=== PATIENT | female | born 1965 | race Two or more races ===

== ENCOUNTER 2020-05-30 16:58 | Inpatient (IN) | payer BC, OTHER ==
[~2020-05-30] VITALS: Ht 160 cm; Wt 156.8 kg
[2020-05-30] MEDS ORDERED: morphine 4 MG/ML inj SYRINge IV ONE (18:05)
[2020-05-30] MEDS ORDERED: ondansetron/PF 4mg/2ml inj IV ONE (18:05)
[2020-05-30 18:10] LABS: BASOPHILS % (AUTO) 0.3 % (0-1); EOSINOPHILS # (AUTO) 0.1 X10'3 (0-0.9); EOSINOPHILS % (AUTO) 1.3 % (0-6); HEMATOCRIT 39.2 % (35.0-45.0); LYMPHOCYTES # (AUTO) 1.7 X10'3 (1.1-4.8); LYMPHOCYTES % (AUTO) 26.4 % (21-51); MEAN CORPUSCULAR HGB CONC 33.1 g/dL (33.0-36.5); MEAN CORPUSCULAR VOLUME 87.6 FL (78-98); MONOCYTES # (AUTO) 0.4 X10'3 (0-0.9); MONOCYTES % (AUTO) 6.4 % (2-12); NEUTROPHILS # (AUTO) 4.2 X10'3 (1.8-7.7); NEUTROPHILS % (AUTO) 65.6 % (42-75); PLATELET COUNT 262 X10'3 (140-440); RED BLOOD COUNT 4.47 X10'6 (4.20-5.60); RED CELL DISTRIBUTION WIDTH 14.1 % (11.5-14.5); WHITE BLOOD COUNT 6.4 X10'3 (4.5-11.0)
[2020-05-30] MEDS ORDERED: pantoprazole 40 MG vial IV ONE (18:15)
[2020-05-30] MEDS ORDERED: famotidine/PF 10 mg/ml inj IV ONE (18:15)
[2020-05-30 18:19] LABS: ALANINE AMINOTRANSFERASE 69 U/L (12-78); ALBUMIN 3.6 G/DL (3.4-5.0); ALBUMIN/GLOBULIN RATIO 0.9 (1.1-1.5); ALKALINE PHOSPHATASE 107 IU/L (46-116); ANION GAP 7 (8-16); ASPARTATE AMINO TRANSFERASE 115 U/L (10-37); BILIRUBIN,TOTAL 0.7 MG/DL (0.1-1.0); BLOOD UREA NITROGEN 17 MG/DL (7-18); BUN/CREATININE RATIO 16.8 (6.6-38.0); CALCIUM 8.9 MG/DL (8.5-10.1); CHLORIDE 103 MMOL/L (99-107); CREATININE 1.01 MG/DL (0.40-0.90); GLUCOSE 139 MG/DL (70-104); SODIUM 140 MMOL/L (135-145); TOTAL CARBON DIOXIDE 29.9 MMOL/L (24-32); TOTAL PROTEIN 7.5 G/DL (6.4-8.2); eGFR 57 ML/MIN
[2020-05-30 18:28] LABS: AMYLASE 68 U/L (25-115); LIPASE 354 U/L (73-393)
[2020-05-30 18:39] LABS: CLARITY,URINE CLEAR (Clear); COLOR,URINE YELLOW (Yellow); GLUCOSE, URINE NEGATIVE (Neg); KETONES,URINE NEGATIVE (Neg); LEUKOCYTE ESTERASE ,URINE NEGATIVE (Neg); NITRITES, URINE NEGATIVE (Neg); OCCULT BLOOD,URINE NEGATIVE (Neg); PROTEIN,URINE NEGATIVE (Neg); UROBILINOGEN,URINE 0.2 E.U/dL (0.2-1.0)
[2020-05-30 18:45] LABS: UA COLLECTION TYPE CLN CATCH MIDSTREAM
[2020-05-30] MEDS ORDERED: acetaminophen 325mg tablet PO ONE (19:05)
[2020-05-30] MEDS ORDERED: ondansetron 4mg rapidly disintigrating tab PO ONE (19:05)
--- NOTE | 2020-05-30 20:24 | NUR ---
Spoke with ESTUARDO Grier on surgical floor. Pt. scheduled for surgery on 06/01/20 @ [address] Mcnamara.
[2020-05-30] MEDS ORDERED: THYR65TA6 PO (20:28)
[2020-05-30] MEDS ORDERED: METF-950 PO (20:28)
[2020-05-30] MEDS ORDERED: ATEN25TA2 PO (20:28)
[2020-05-30] MEDS ORDERED: ESOM40CA54 PO (20:28)
[2020-05-30] MEDS ORDERED: ondansetron/PF 4mg/2ml inj IV PRN (20:50)
[2020-05-30] MEDS ORDERED: MESSAGE TO PHARMACY PO ONE (20:50)
[2020-05-30] MEDS ORDERED: magnesium 4gm in 100ml NS 100 ML IV PRN (20:50)
[2020-05-30] MEDS ORDERED: potassium CL 10mEq/100ml bag 100 ML IV PRN ×2 (20:50)
[2020-05-30] MEDS ORDERED: magnesium 2GM in 50ml NS 50 ML IV PRN (20:50)
[2020-05-30] MEDS ORDERED: dextrose ORAL solution 15 GM/59 ML bottle PO PRN ×2 (20:50)
[2020-05-30] MEDS ORDERED: dextrose 50%-water 50ml dispensing syringe IV PRN ×2 (20:50)
[2020-05-30] MEDS ORDERED: glucagon, human recombinant 1mg kit SUBCUT PRN (20:50)
[2020-05-30] MEDS ORDERED: mag hydrox/Alum hydrox/simeth 30ml oral suspension PO PRN (20:50)
[2020-05-30] MEDS ORDERED: insulin Lispro (HumaLOG) vial - multi-dose SQ SCH (20:50)
[2020-05-30] MEDS ORDERED: acetaminophen 325mg tablet PO PRN (20:50)
[2020-05-30] MEDS ORDERED: potassium Cl 20 mEq SR tablet PO PRN ×2 (20:50)
[2020-05-30] MEDS: insulin glargine (Lantus) pen - multi-dose SQ SCH (21:00)
[2020-05-30] MEDS: normal saline 1000ml 1,000 ML IV SCH (21:02)
[2020-05-30] MEDS ORDERED: morphine 4 MG/ML inj SYRINge IV PRN (21:15)
[2020-05-30] MEDS: morphine 2 MG/ML inj. syringe IV PRN (21:30)
[2020-05-30 22:25] VITALS: BP 154/82
--- NOTE | 2020-05-30 23:17 | NUR ---
PAGER ID: [phone] MESSAGE: Pt. in [id number] is requesting meds for gas pain. Can we have simethicone? Vida [phone]
[2020-05-30] MEDS ORDERED: simethicone 80mg chew tab PO ONE (23:20)
--- NOTE | 2020-05-31 06:22 | NUR ---
Problems reprioritized. Patient report given, questions answered & plan of care reviewed with Gen RN.
[2020-05-31 06:43] LABS: BASOPHILS % (AUTO) 0.3 % (0-1); EOSINOPHILS % (AUTO) 0.2 % (0-6); HEMATOCRIT 36.8 % (35.0-45.0); HEMOGLOBIN 12.4 g/dl (12.0-16.0); LYMPHOCYTES # (AUTO) 1.2 X10'3 (1.1-4.8); LYMPHOCYTES % (AUTO) 14.4 % (21-51); MEAN CORPUSCULAR HEMOGLOBIN 29.3 PG (27.0-31.0); MEAN CORPUSCULAR HGB CONC 33.7 g/dL (33.0-36.5); MEAN CORPUSCULAR VOLUME 87.1 FL (78-98); MONOCYTES # (AUTO) 0.5 X10'3 (0-0.9); MONOCYTES % (AUTO) 5.4 % (2-12); NEUTROPHILS # (AUTO) 6.8 X10'3 (1.8-7.7); NEUTROPHILS % (AUTO) 79.7 % (42-75); PLATELET COUNT 239 X10'3 (140-440); RED BLOOD COUNT 4.23 X10'6 (4.20-5.60); RED CELL DISTRIBUTION WIDTH 14.1 % (11.5-14.5); WHITE BLOOD COUNT 8.5 X10'3 (4.5-11.0)
--- NOTE | 2020-05-31 06:43 | NUR ---
Patient in room ORTHO 4012. I have received report from Vida FRAGOSO and had the opportunity to ask questions and assume patient care.
[2020-05-31 07:02] LABS: ALANINE AMINOTRANSFERASE 162 U/L (12-78); ALBUMIN 3.1 G/DL (3.4-5.0); ALBUMIN/GLOBULIN RATIO 0.9 (1.1-1.5); ALKALINE PHOSPHATASE 102 IU/L (46-116); ANION GAP 8 (8-16); ASPARTATE AMINO TRANSFERASE 146 U/L (10-37); BILIRUBIN,TOTAL 0.5 MG/DL (0.1-1.0); BLOOD UREA NITROGEN 9 MG/DL (7-18); CALCIUM 8.3 MG/DL (8.5-10.1); CHLORIDE 103 MMOL/L (99-107); CHOLESTEROL 145 MG/DL (0-200); CREATININE 0.75 MG/DL (0.40-0.90); GLUCOSE 107 MG/DL (70-104); HDL CHOLESTEROL 73 MG/DL (35-60); LDL CHOLESTEROL 61 MG/DL (50-100); POTASSIUM 3.9 MMOL/L (3.5-5.1); SODIUM 136 MMOL/L (135-145); TOTAL CARBON DIOXIDE 25.2 MMOL/L (24-32); TOTAL PROTEIN 6.5 G/DL (6.4-8.2); TRIGLYCERIDES 45 MG/DL (20-135); eGFR 80 ML/MIN
[2020-05-31] MEDS: pantoprazole 40 MG vial IV SCH (07:07)
[2020-05-31] MEDS: normal saline 1000ml 1,000 ML IV SCH ×3 (07:07→21:32)
[2020-05-31] MEDS: enoxaparin 40mg/0.4ml syringe SQ SCH (07:27)
[2020-05-31] MEDS: K and/or MAG REPLACEMENT MC SCH ×2 (07:27→20:00)
[2020-05-31 08:29] VITALS: BP 137/72
--- NOTE | 2020-05-31 08:59 | NUR ---
DM consult: Pt with A1c 5.5%, DM education not warranted at this time. Will continue to follow. Addendum: 05/31/20 at [address] Amended: Links added.
[2020-05-31 11:09] VITALS: BP 142/83
[2020-05-31 18:00] VITALS: BP 139/65
--- NOTE | 2020-05-31 18:31 | NUR ---
Problems reprioritized. Patient report given, questions answered & plan of care reviewed with Vida FRAGOSO.
--- NOTE | 2020-05-31 18:36 | NUR ---
Patient in room ORTHO 4012. I have received report from Gen FRAGOSO and had the opportunity to ask questions and assume patient care.
[2020-05-31] MEDS: insulin glargine (Lantus) pen - multi-dose SQ SCH (21:00)
[2020-05-31 22:22] VITALS: BP 131/80
--- NOTE | 2020-05-31 23:36 | NUR ---
Problems reprioritized. Patient report given, questions answered & plan of care reviewed with Valentina FRAGOSO.
[2020-06-01] VITALS (18 sets, daily range): BP systolic 100–143; BP diastolic 68–82
--- NOTE | 2020-06-01 04:49 | NUR ---
ASSUMED CARE OF PATIENT WITH VERBAL REPORT AT 2330 FROM LUCA FRAGOSO. PATIENT RESTING WITH OCCASIONAL VOIDS PER BRP. NPO AT MIDNIGHT FOR CHOLECYSTECTOMY SURG AT [address] AGUILAR.
--- NOTE | 2020-06-01 05:44 | NUR ---
PREOP CHECKLIST COMPLETED FOR MY SHIFT AND ALLERGIES NOTED ON BAND AND PLACED ON PATIENT
[2020-06-01] MEDS ORDERED: BUPIVAcaine/PF 2.5 mg/ml (0.25%) 30ml vial ONE (05:54)
--- NOTE | 2020-06-01 06:36 | NUR ---
Problems reprioritized. Patient report given, questions answered & plan of care reviewed with Mary Grace FRAGOSO.
[2020-06-01] MEDS: enoxaparin 40mg/0.4ml syringe SQ SCH (06:38)
[2020-06-01] MEDS: K and/or MAG REPLACEMENT MC SCH ×2 (06:38→20:00)
--- NOTE | 2020-06-01 06:39 | NUR ---
Patient in room ORTHO 4012. I have received report from AIDEN FRAGOSO and had the opportunity to ask questions and assume patient care.
[2020-06-01 07:11] LABS: BASOPHILS % (AUTO) 0.2 % (0-1); EOSINOPHILS # (AUTO) 0.1 X10'3 (0-0.9); HEMATOCRIT 37.8 % (35.0-45.0); HEMOGLOBIN 12.7 g/dl (12.0-16.0); LYMPHOCYTES # (AUTO) 1.6 X10'3 (1.1-4.8); LYMPHOCYTES % (AUTO) 16.4 % (21-51); MEAN CORPUSCULAR HEMOGLOBIN 29.1 PG (27.0-31.0); MEAN CORPUSCULAR HGB CONC 33.6 g/dL (33.0-36.5); MEAN CORPUSCULAR VOLUME 86.7 FL (78-98); MEAN PLATELET VOLUME 8.8 FL (7.4-10.4); MONOCYTES # (AUTO) 0.8 X10'3 (0-0.9); MONOCYTES % (AUTO) 7.8 % (2-12); NEUTROPHILS # (AUTO) 7.2 X10'3 (1.8-7.7); NEUTROPHILS % (AUTO) 74.6 % (42-75); PLATELET COUNT 241 X10'3 (140-440); RED BLOOD COUNT 4.36 X10'6 (4.20-5.60); RED CELL DISTRIBUTION WIDTH 13.9 % (11.5-14.5); WHITE BLOOD COUNT 9.7 X10'3 (4.5-11.0)
[2020-06-01 07:28] LABS: ALANINE AMINOTRANSFERASE 102 U/L (12-78); ALBUMIN 3.1 G/DL (3.4-5.0); ALBUMIN/GLOBULIN RATIO 0.9 (1.1-1.5); ALKALINE PHOSPHATASE 95 IU/L (46-116); ANION GAP 7 (8-16); ASPARTATE AMINO TRANSFERASE 47 U/L (10-37); BILIRUBIN,TOTAL 0.9 MG/DL (0.1-1.0); BLOOD UREA NITROGEN 7 MG/DL (7-18); CALCIUM 8.6 MG/DL (8.5-10.1); CHLORIDE 104 MMOL/L (99-107); CREATININE 0.78 MG/DL (0.40-0.90); GLUCOSE 107 MG/DL (70-104); POTASSIUM 3.8 MMOL/L (3.5-5.1); SODIUM 138 MMOL/L (135-145); TOTAL CARBON DIOXIDE 26.7 MMOL/L (24-32); TOTAL PROTEIN 6.7 G/DL (6.4-8.2); eGFR 77 ML/MIN
[2020-06-01] MEDS: pantoprazole 40 MG vial IV SCH (07:42)
[2020-06-01] MEDS: normal saline 1000ml 1,000 ML IV SCH ×3 (07:47→23:10)
[2020-06-01] MEDS ORDERED: ceFOXitin 2GM-NS 50mL ADDVANT. 50 ML IV ONE (08:15)
[2020-06-01] MEDS ORDERED: fentaNYL /PF 50mcg/ml 5ml ampule ONE (08:18)
[2020-06-01] MEDS ORDERED: midazolam 2 mg/2 ml injection ONE (08:18)
[2020-06-01] MEDS ORDERED: sevoflurane 250ml liquid IH ONE (08:31)
[2020-06-01] MEDS ORDERED: neostigmine methylsulfate 1 MG/ML 10ml vial ONE (08:31)
[2020-06-01] MEDS ORDERED: glycopyrrolate 0.2mg/ml inj ONE (08:31)
[2020-06-01] MEDS ORDERED: ringers solution, lacted 1,000 ML IV SCH (08:37)
[2020-06-01] MEDS ORDERED: proCHLORperazine 10 MG/2 ml inj IV PRN (08:40)
[2020-06-01] MEDS ORDERED: morphine 2 MG/ML inj. syringe IV PRN (08:40)
[2020-06-01] MEDS ORDERED: morphine 4 MG/ML inj SYRINge IV PRN (08:40)
[2020-06-01] MEDS ORDERED: meperidine/PF 25mg/ml syringe IV PRN ×3 (08:40)
[2020-06-01] MEDS ORDERED: ondansetron/PF 4mg/2ml inj IV PRN (08:40)
[2020-06-01] MEDS ORDERED: LIDOcaine 2% (20mg/ml) 5ml vial ONE (09:37)
[2020-06-01] MEDS ORDERED: rocuronium 10mg/ml inj IV ONE (09:37)
[2020-06-01] MEDS ORDERED: propofol inj 20 ML IV ONE (09:37)
[2020-06-01] MEDS ORDERED: ondansetron/PF 4mg/2ml inj ONE (09:37)
[2020-06-01] MEDS ORDERED: succinylcholine 20mg/ml inj IV ONE (09:37)
--- NOTE | 2020-06-01 09:50 | NUR ---
Received from OR via ORTHO BED , accompanied by Anesthesiologist DR MATSON and report given by Anesthesiolgist. PT SLEEPY BUT AROUSABLE. ABD SOFT. LAP SITES TO ABD X 4 WITH BANDAIDS CDI. SCD'S ON. IV TO RIGHT UPPER ARM INFUSING LR.
--- NOTE | 2020-06-01 10:22 | NUR ---
RECD REPORT FROM [facility] [place] IN [place]
--- NOTE | 2020-06-01 11:00 | NUR ---
PT TO 4012 B VIA ORTHO BED. PT ALERT AND ORIENTED AND STATED READINESS FOR XFER BACK TO ROOM. NO BELONGINGS OTHER THAN GLASSES. GLASSES IN CASE IN PT CHART. PT ABD REMAINS SOFT, LAP SITES CDI. PT ORIENTED TO ROOM AND CALL LIGHT. BED LOW, LOCKED, RAILS UP X 2, CALL LIGHT IN REACH. PT EDUCATED ON IMPORTANCE OF WALKING SOON TO HELP ALLEVIATE MORE OF HER "PRESSURE" SHE IS FEELING IN HER ABD. SUHAS FRAGOSO REC'D REPORT AND ASSUMED CARE OF PT. PT DENIES SIGNIFICANT PAIN AND STATES ITS TOLERABLE AND FEELS LIKE PRESSURE STATES ITS MAYBE A 3/10. DECLINED THE NEED FOR MORE PAIN MEDS AT THIS TIME.
--- NOTE | 2020-06-01 12:59 | NUR ---
Problems reprioritized. Patient report given, questions answered & plan of care reviewed with VI FRAGOSO.
--- NOTE | 2020-06-01 18:16 | NUR ---
Problems reprioritized. Patient report given, questions answered & plan of care reviewed with Thania FRAGOSO.
--- NOTE | 2020-06-01 18:20 | NUR ---
Patient in room WILD 360. I have received report from Kendra FRAGOSO and had the opportunity to ask questions and assume patient care.
--- NOTE | 2020-06-01 19:00 | NUR ---
This PIV was actually started on may 30. Addendum: 06/02/20 at 0336 by Thania Trimble RN Amended: Links added.
[2020-06-01] MEDS: pantoprazole 40mg Tablet.DR PO SCH (20:44)
[2020-06-01] MEDS: insulin glargine (Lantus) pen - multi-dose SQ SCH (21:00)
[2020-06-01] MEDS: atenolol 25mg tablet PO SCH (21:31)
[2020-06-01] MEDS: morphine 2 MG/ML inj. syringe IV PRN (23:10)
[2020-06-02] VITALS (7 sets, daily range): BP systolic 103–136; BP diastolic 50–77
[2020-06-02 05:32] LABS: BASOPHILS % (AUTO) 0.2 % (0-1); EOSINOPHILS # (AUTO) 0.2 X10'3 (0-0.9); EOSINOPHILS % (AUTO) 2.3 % (0-6); HEMATOCRIT 37.1 % (35.0-45.0); HEMOGLOBIN 12.3 g/dl (12.0-16.0); LYMPHOCYTES # (AUTO) 1.4 X10'3 (1.1-4.8); LYMPHOCYTES % (AUTO) 13.9 % (21-51); MEAN CORPUSCULAR HEMOGLOBIN 28.9 PG (27.0-31.0); MEAN CORPUSCULAR HGB CONC 33.1 g/dL (33.0-36.5); MEAN CORPUSCULAR VOLUME 87.4 FL (78-98); MEAN PLATELET VOLUME 8.6 FL (7.4-10.4); MONOCYTES # (AUTO) 0.6 X10'3 (0-0.9); MONOCYTES % (AUTO) 6.6 % (2-12); NEUTROPHILS # (AUTO) 7.6 X10'3 (1.8-7.7); PLATELET COUNT 239 X10'3 (140-440); RED BLOOD COUNT 4.25 X10'6 (4.20-5.60); RED CELL DISTRIBUTION WIDTH 14.2 % (11.5-14.5); WHITE BLOOD COUNT 9.8 X10'3 (4.5-11.0)
[2020-06-02 05:45] LABS: ALANINE AMINOTRANSFERASE 73 U/L (12-78); ALBUMIN 2.6 G/DL (3.4-5.0); ALBUMIN/GLOBULIN RATIO 0.7 (1.1-1.5); ALKALINE PHOSPHATASE 76 IU/L (46-116); ANION GAP 6 (8-16); ASPARTATE AMINO TRANSFERASE 33 U/L (10-37); BLOOD UREA NITROGEN 9 MG/DL (7-18); BUN/CREATININE RATIO 9.7 (6.6-38.0); CALCIUM 8.2 MG/DL (8.5-10.1); CHLORIDE 104 MMOL/L (99-107); CREATININE 0.93 MG/DL (0.40-0.90); GLUCOSE 107 MG/DL (70-104); MAGNESIUM 1.9 MG/DL (1.5-2.4); POTASSIUM 3.7 MMOL/L (3.5-5.1); SODIUM 137 MMOL/L (135-145); TOTAL PROTEIN 6.2 G/DL (6.4-8.2); eGFR 63 ML/MIN
[2020-06-02] MEDS: morphine 2 MG/ML inj. syringe IV PRN (05:50)
--- NOTE | 2020-06-02 06:54 | NUR ---
Problems reprioritized. Patient report given, questions answered & plan of care reviewed with Mary Grace FRAGOSO.
[2020-06-02] MEDS: pantoprazole 40 MG vial IV SCH (07:01)
[2020-06-02] MEDS: K and/or MAG REPLACEMENT MC SCH ×2 (07:01→20:00)
[2020-06-02] MEDS: enoxaparin 40mg/0.4ml syringe SQ SCH (07:08)
[2020-06-02] MEDS: pantoprazole 40mg Tablet.DR PO SCH ×3 (07:08→20:21)
[2020-06-02] MEDS: THYROID PORK 65 MG PO SCH (07:09)
[2020-06-02] MEDS: normal saline 1000ml 1,000 ML IV SCH (09:25)
[2020-06-02] MEDS: HYDROcodone/acetaminophen 10/325mg tab PO PRN ×2 (12:45→23:00)
--- NOTE | 2020-06-02 18:09 | NUR ---
Problems reprioritized. Patient report given, questions answered & plan of care reviewed with VISHNU FRAGOSO.
--- NOTE | 2020-06-02 18:20 | NUR ---
Patient in room WILD 360. I have received report from Mary Grace FRAGOSO and had the opportunity to ask questions and assume patient care.
--- NOTE | 2020-06-02 19:58 | NUR ---
Reported off to Parisa FRAGOSO
--- NOTE | 2020-06-02 20:01 | NUR ---
Patient in room IWLD 360. I have received report from Thania FRAGOSO and had the opportunity to ask questions and assume patient care.
[2020-06-02] MEDS: atenolol 25mg tablet PO SCH (20:24)
--- NOTE | 2020-06-02 20:43 | NUR ---
Problems reprioritized. Patient report given, questions answered & plan of care reviewed with Nikki FRAGOSO.
[2020-06-02] MEDS: insulin glargine (Lantus) pen - multi-dose SQ SCH (21:00)
--- NOTE | 2020-06-02 21:00 | NUR ---
Patient in room WILD 360. I have received report from Parisa FRAGOSO and had the opportunity to ask questions and assume patient care.
[2020-06-03] VITALS: BP 96/54
[2020-06-03] MEDS: normal saline 1000ml 1,000 ML IV SCH (01:36)
[2020-06-03 05:22] LABS: BASOPHILS % (AUTO) 0.3 % (0-1); EOSINOPHILS # (AUTO) 0.3 X10'3 (0-0.9); EOSINOPHILS % (AUTO) 4.3 % (0-6); HEMATOCRIT 35.9 % (35.0-45.0); LYMPHOCYTES # (AUTO) 1.3 X10'3 (1.1-4.8); LYMPHOCYTES % (AUTO) 21.1 % (21-51); MEAN CORPUSCULAR HEMOGLOBIN 29.1 PG (27.0-31.0); MEAN CORPUSCULAR HGB CONC 33.5 g/dL (33.0-36.5); MEAN CORPUSCULAR VOLUME 86.8 FL (78-98); MONOCYTES # (AUTO) 0.4 X10'3 (0-0.9); MONOCYTES % (AUTO) 5.9 % (2-12); NEUTROPHILS # (AUTO) 4.2 X10'3 (1.8-7.7); NEUTROPHILS % (AUTO) 68.4 % (42-75); PLATELET COUNT 232 X10'3 (140-440); RED BLOOD COUNT 4.14 X10'6 (4.20-5.60); RED CELL DISTRIBUTION WIDTH 13.8 % (11.5-14.5); WHITE BLOOD COUNT 6.1 X10'3 (4.5-11.0)
[2020-06-03 05:45] LABS: ALANINE AMINOTRANSFERASE 60 U/L (12-78); ALBUMIN 2.7 G/DL (3.4-5.0); ALBUMIN/GLOBULIN RATIO 0.7 (1.1-1.5); ALKALINE PHOSPHATASE 75 IU/L (46-116); ANION GAP 7 (8-16); ASPARTATE AMINO TRANSFERASE 25 U/L (10-37); BILIRUBIN,TOTAL 0.7 MG/DL (0.1-1.0); BLOOD UREA NITROGEN 9 MG/DL (7-18); BUN/CREATININE RATIO 9.8 (6.6-38.0); CALCIUM 8.3 MG/DL (8.5-10.1); CHLORIDE 103 MMOL/L (99-107); CREATININE 0.92 MG/DL (0.40-0.90); GLUCOSE 98 MG/DL (70-104); POTASSIUM 3.5 MMOL/L (3.5-5.1); SODIUM 138 MMOL/L (135-145); TOTAL CARBON DIOXIDE 27.8 MMOL/L (24-32); TOTAL PROTEIN 6.6 G/DL (6.4-8.2); eGFR 63 ML/MIN
--- NOTE | 2020-06-03 06:09 | NUR ---
Problems reprioritized. Patient report given, questions answered & plan of care reviewed with Jony RN.
--- NOTE | 2020-06-03 06:10 | NUR ---
Patient in room WILD 360. I have received report from RICHMOND Jordan and had the opportunity to ask questions and assume patient care.
[2020-06-03 07:00] VITALS: BP 116/65
[2020-06-03] MEDS: pantoprazole 40mg Tablet.DR PO SCH (07:55)
[2020-06-03] MEDS: enoxaparin 40mg/0.4ml syringe SQ SCH (07:55)
[2020-06-03] MEDS: THYROID PORK 65 MG PO SCH (07:55)
[2020-06-03] MEDS: K and/or MAG REPLACEMENT MC SCH (08:00)
--- NOTE | 2020-06-03 10:40 | NUR ---
Gave patient discharge instructions and educated patient; patient states she has no further questions and will make an appt to follow up with Dr. Trammell in one week. MD ordered no new medications for discharge. Patient states she will continue all her home medications after discharge. Gave patient Bates for headache and side pain, pt states her is picking her up from hospital and advised pt not to take anything for pain for another 4 hours and pt agrees. All belongings sent with patient and pt left via wheelchair to her who is her ride home.
[2020-06-03] MEDS: HYDROcodone/acetaminophen 10/325mg tab PO PRN (10:46)
== END 2020-06-03 10:53 | disposition home or self-care (01) | DRG 418 ==
LOC: ER 16:59 → UNDOADMIN 20:50 → ED HOLD 20:50 → EDBEDREQ 21:42 → ORTHO 4S 22:05 → SUR 3N 06-01 12:58
PROVIDERS: ADMIT Family Medicine; ATTEND Family Medicine
PROC: 0FT44ZZ Resection of Gallbladder, Percutaneous Endoscopic Approach (ICD-10-PCS; principal; 2020-06-01 08:31)
DX: K80.00 Calculus of gallbladder with acute cholecystitis without obstruction (principal); I48.20 Chronic atrial fibrillation, unspecified; Z68.44 Body mass index [BMI] 60.0-69.9, adult; E66.01 Morbid (severe) obesity due to excess calories; E03.9 Hypothyroidism, unspecified; G47.33 Obstructive sleep apnea (adult) (pediatric); I48.0 Paroxysmal atrial fibrillation; K42.9 Umbilical hernia without obstruction or gangrene; N20.0 Calculus of kidney; R73.03 Prediabetes; Z79.84 Long term (current) use of oral hypoglycemic drugs; Z80.3 Family history of malignant neoplasm of breast; Z98.891 History of uterine scar from previous surgery; Z90.710 Acquired absence of both cervix and uterus; Z90.49 Acquired absence of other specified parts of digestive tract; Z87.891 Personal history of nicotine dependence
CPT/HCPCS: 99285; Z7506; Z7508; 36415; 74176; 80053; 80061; 81003; 82150; 82948; 83036; 83690; 83735; 84484; 85025; 87081; 93005; 97116; 97161; 97530; 97535; A4215; A4618; A7000; C9113; G0378; J0330; J0694; J1650; J1815; J2001; J2175; J2250; J2270; J2405; J2704; J2710; J3010; J3490; J7030; J7120